=== PATIENT | male | born 1990 | race Caucasian/White ===

== ENCOUNTER 2021-04-06 01:13 | Emergency (ER) | payer SELFPAY ==
[~2021-04-06] VITALS: Ht 165.1 cm; Wt 81.6 kg
[2021-04-06 01:29] VITALS: BP 150/90
--- NOTE | 2021-04-06 01:32 | NUR ---
TO BED AMBULATORY
--- NOTE | 2021-04-06 01:50 | NUR ---
pt ambulated to er bed 12 at this time.
[2021-04-06] MEDS ORDERED: PANTOPRAZOLE 40 MG INJ VIAL IVP ONE (01:55)
[2021-04-06] MEDS ORDERED: NACL 0.9% 1,000 ML IV SCH (01:55)
[2021-04-06] MEDS ORDERED: ONDANSETRON 4 MG/2 ML VIAL IVP ONE (01:55)
--- NOTE | 2021-04-06 02:00 | NUR ---
SEE COMPLETE ASSESSMENT FOR PT INFORMATION
[2021-04-06 02:11] LABS: BASOPHILS # (AUTO) 0.1 K/uL (0.00-0.22); BASOPHILS % (AUTO) 0.6 % (0.0-2.0); EOSINOPHILS # (AUTO) 0.3 K/uL (0-0.4); EOSINOPHILS % (AUTO) 2.3 % (0.0-4.0); HEMATOCRIT 42.7 % (36-52); HEMOGLOBIN 14.4 g/dL (12.0-18.0); LYMPHOCYTES # (AUTO) 3.7 K/uL (2.0-11.5); LYMPHOCYTES % (AUTO) 31.8 % (20.5-51.1); MEAN CORPUSCULAR HEMOGLOBIN 32 pg (27-31); MEAN CORPUSCULAR HGB CONC 34 g/dL (33-37); MEAN CORPUSCULAR VOLUME 93.7 fL (80-94); MONOCYTES # (AUTO) 0.6 K/uL (0.8-1.0); NEUTROPHILS # (AUTO) 7.1 K/uL (1.8-7.7); NEUTROPHILS % (AUTO) 60.3 % (42.2-75.2); PLATELET COUNT (AUTO) 293 K/uL (140-450); RED BLOOD CELL COUNT(AUTO) 4.56 MIL/uL (4.20-6.10); RED CELL DISTRIBUTION WIDTH 13.7 % (11.6-13.7); WHITE BLOOD COUNT (AUTO) 11.8 K/uL (4.8-10.8)
[2021-04-06 02:30] LABS: ALBUMIN 3.7 g/dL (3.4-5.0); ANION GAP 11.3 (8-16); ASPARTATE AMINOTRANSFERASE 16 U/L (15-37); CARBON DIOXIDE 29.2 mmol/L (21-32); CHLORIDE 104 mmol/L (98-107); CREATININE 0.9 mg/dL (0.6-1.3); GFR ARICAN-AMERICAN 126 mL/min (>90); GLUCOSE 120 mg/dL (74-106); LIPASE 112 U/L (73-393); POTASSIUM 3.5 mmol/L (3.5-5.1); SODIUM SERUM 141 mmol/L (136-145); TOTAL BILIRUBIN 0.7 mg/dL (0.0-1.0); UREA NITROGEN, BLOOD 12 mg/dL (7-18)
--- NOTE | 2021-04-06 02:43 | NUR ---
PT RETURN FROM CT
[2021-04-06] MEDS ORDERED: ALUMINUM HYD/MAG/SIMETHICONE 30 ML, DICYCLOMINE HCL LIQUID 20 MG, LIDOCAINE VISCOUS 2% ... PO ONE ×3 (03:05)
[2021-04-06] MEDS ORDERED: DICYCLOMINE HCL LIQUID 10 MG/5 ML UDC ONE (03:11)
[2021-04-06] MEDS ORDERED: ALUMINUM HYD/MAG/SIMETHICONE 30 ML UDC ONE (03:11)
[2021-04-06] MEDS ORDERED: PANT40EC PO (03:13)
[2021-04-06 03:21] VITALS: BP 119/85
--- NOTE | 2021-04-06 03:21 | NUR ---
Patient discharged with v/s stable. Written and verbal after care instructions given and explained. Patient alert, oriented and verbalized understanding of instructions. with steady gait. All questions addressed prior to discharge. ID band removed. Patient advised to follow up with PMD. Rx of PROTONIX given. Patient educated on indication of medication including possible reaction and side effects. Opportunity to ask questions provided and answered.
== END 2021-04-06 03:21 | disposition home or self-care (01) ==
LOC: MED 01:13
DX: R10.13 Epigastric pain (principal)
CPT/HCPCS: 36415; 74176; 80053; 83690; 84484; 85025; 93005; 96361; 96374; 96375; 99285; C9113; G0482; J2405; J7030

== ENCOUNTER 2021-04-07 01:10 | Emergency (ER) | payer SELFPAY ==
[~2021-04-07] VITALS: Ht 160 cm; Wt 81.6 kg
[~2021-04-07 01:10] MED LIST: PANT40EC PO
[2021-04-07 01:25] VITALS: BP 132/85
[2021-04-07] MEDS ORDERED: ALUMINUM HYD/MAG/SIMETHICONE 30 ML, DICYCLOMINE HCL LIQUID 20 MG, LIDOCAINE VISCOUS 2% ... PO ONE ×3 (01:45)
[2021-04-07] MEDS ORDERED: ONDANSETRON 4 MG ODT PO ONE (01:45)
[2021-04-07] MEDS ORDERED: PANTOPRAZOLE 40 MG TABEC PO ONE (01:45)
[2021-04-07] MEDS ORDERED: ALUMINUM HYD/MAG/SIMETHICONE 30 ML UDC ONE (02:04)
[2021-04-07] MEDS ORDERED: DICYCLOMINE HCL LIQUID 10 MG/5 ML UDC ONE (02:04)
[2021-04-07 02:23] VITALS: BP 132/85
== END 2021-04-07 02:22 | disposition home or self-care (01) ==
LOC: MED 01:10
DX: K29.70 Gastritis, unspecified, without bleeding (principal)
CPT/HCPCS: 74018; 99284; Q0162